=== PATIENT | male | born 1995 | race African-American/Black ===

== ENCOUNTER 2017-11-27 11:23 | Emergency (ER) | payer OTHER ==
[~2017-11-27] VITALS: Ht 180.3 cm; Wt 94.4 kg
[~2017-11-27 11:23] MED LIST: MOTRIN600 MG PO; PEN-VEE K,VEET500 MG PO; TRAMADOL HCL50 MG PO
[2017-11-27] MEDS ORDERED: AUGMENTIN875 MG PO (14:15)
[2017-11-27 14:26] VITALS: BP 136/69
== END 2017-11-27 14:28 | disposition home or self-care (01) ==
LOC: EME 11:23
PROC: 0HQ1XZZ Repair Face Skin, External Approach (ICD-10-PCS; principal; 2017-11-27)
DX: S01.412A Laceration without foreign body of left cheek and temporomandibular area, initial encounter (principal); X58.XXXA Exposure to other specified factors, initial encounter; Y93.89 Activity, other specified
CPT/HCPCS: 99281; 99283

== ENCOUNTER 2017-12-03 11:06 | Emergency (ER) | payer OTHER ==
[~2017-12-03] VITALS: Ht 180.3 cm; Wt 95.3 kg
[~2017-12-03 11:06] MED LIST changes: +AUGMENTIN875 MG PO
[2017-12-03 13:28] VITALS: BP 139/70
== END 2017-12-03 13:29 | disposition home or self-care (01) ==
LOC: EME 11:06
DX: S01.551D Open bite of lip, subsequent encounter (principal); F17.200 Nicotine dependence, unspecified, uncomplicated
CPT/HCPCS: 99281; 99282

== ENCOUNTER 2017-12-11 19:35 | Emergency (ER) | payer OTHER ==
[~2017-12-11] VITALS: Ht 180.3 cm; Wt 98.7 kg
[2017-12-11] MEDS ORDERED: MOTRIN800 MG PO (21:31)
[2017-12-11] MEDS ORDERED: VALIUM5 MG PO (21:31)
[2017-12-11] MEDS ORDERED: NORCO 7.5/321 TABLET PO (21:31)
[2017-12-11 21:43] VITALS: BP 109/72
== END 2017-12-11 21:45 | disposition home or self-care (01) ==
LOC: EME 19:35
DX: S09.90XA Unspecified injury of head, initial encounter (principal); S70.12XA Contusion of left thigh, initial encounter; S16.1XXA Strain of muscle, fascia and tendon at neck level, initial encounter; S39.012A Strain of muscle, fascia and tendon of lower back, initial encounter; F17.200 Nicotine dependence, unspecified, uncomplicated; V49.40XA Driver injured in collision with unspecified motor vehicles in traffic accident, initial encounter; Y92.410 Unspecified street and highway as the place of occurrence of the external cause
CPT/HCPCS: 72040; 72100; 73552; 99281; 99284

== ENCOUNTER 2018-01-02 12:50 | Emergency (ER) | payer OTHER ==
[~2018-01-02] VITALS: Ht 180.3 cm; Wt 97.9 kg
[~2018-01-02 12:50] MED LIST changes: +MOTRIN800 MG PO; +NORCO 7.5/321 TABLET PO; +VALIUM5 MG PO
[2018-01-02] MEDS ORDERED: NAPROSYN500 MG PO (13:40)
[2018-01-02] MEDS ORDERED: PEN-VEE K,VEET500 MG PO (13:40)
[2018-01-02] MEDS ORDERED: ULTRAM50 MG PO (13:40)
[2018-01-02 14:00] VITALS: BP 137/87
== END 2018-01-02 14:00 | disposition home or self-care (01) ==
LOC: EME 12:50
DX: K04.7 Periapical abscess without sinus (principal); K02.9 Dental caries, unspecified; F17.200 Nicotine dependence, unspecified, uncomplicated; S02.5XXA Fracture of tooth (traumatic), initial encounter for closed fracture; X58.XXXA Exposure to other specified factors, initial encounter
CPT/HCPCS: 99281; 99283